=== PATIENT | female | born 2000 | race Caucasian/White ===

== ENCOUNTER 2021-10-14 04:42 | Emergency (ER) | payer SELFPAY ==
[~2021-10-14] VITALS: Ht 172.7 cm; Wt 116.8 kg
[~2021-10-14 04:42] MED LIST: ANTIVERT 25MG25 MG PO
[2021-10-14 10:10] VITALS: BP 136/87; PULSE 78; TEMP 98.6
== END 2021-10-14 10:10 | disposition home or self-care (01) ==
LOC: COL.ER 04:42
DX: T74.21XA Adult sexual abuse, confirmed, initial encounter (principal)
CPT/HCPCS: J0696